=== PATIENT | male | born 1960 | race Caucasian/White ===

== ENCOUNTER 2018-11-12 16:28 | Inpatient (IN) | payer BC ==
[~2018-11-12] VITALS: Ht 188 cm; Wt 109.1 kg
[~2018-11-12 16:28] MED LIST: AMOXICILLIN 8751 TAB PO; CEPHALEXIN500 M1 PO; GLUCOPHAGE500 MG/TAB PO; LEVAQUIN 5500 MG/TA1 PO; LEVEMIR SQ; LEVEMIR100 U/ML SC; NOVOLOG 100U100 U/M1 SC; OXY IR5 MG PO; ROCEPHIN VIA1 G/VIAL IV; ZESTRIL 20MG TA20 MG PO
[2018-11-12 17:29] LABS: ALANINE AMINOTRANSFERASE < 6 U/L (21-72); ALBUMIN 3.5 gm/dL (3.5-5.0); ALKALINE PHOSPHATASE 152 U/L (50-136); ANION GAP 9 mmol/L (7-16); AST,SGOT 16 U/L (15-37); BILIRUBIN,TOTAL 0.6 mg/dL (0.0-1.0); BLOOD UREA NITROGEN 14 mg/dL (9-20); CALCIUM 8.9 mg/dL (8.4-10.2); CARBON DIOXIDE 27 mmol/L (22-30); CHLORIDE 93 mmol/L (98-107); POTASSIUM 4.4 mmol/L (3.4-5.0); SODIUM 129 mmol/L (137-145); TOTAL PROTEIN 7.4 gm/dL (6.4-8.2)
[2018-11-12 17:30] LABS: BASO % 0.3 % (0.0-2.0); EOS # 0.1 (0.0-0.7); EOS % 0.5 % (0-4.0); HEMOGLOBIN 11.2 g/dl (13.5-18.0); LYMPH # 1.2 (1.2-3.4); LYMPH % 8.6 % (20.0-51.0); MEAN CELL VOLUME 87 fl (80.0-100.0); MEAN CORPUSCULAR HEMOGLOBIN 30 pg (27.0-31.0); MEAN CORPUSCULAR HGB CONC 34 g/dl (33.0-37.0); MONO % 6.7 % (1.7-9.3); PLATELET COUNT 280 K/mm3 (130-400); RED BLOOD COUNT 3.79 M/mm3 (4.20-5.60); REDCELL DISTRIBUTION WIDTH-CV 11.9 % (11.5-14.5)
[2018-11-12 17:31] LABS: HEMATOCRIT 33.1 % (42.0-52.0)
[2018-11-12 17:33] LABS: GLUCOSE 526 mg/dL (74-106)
[2018-11-12 17:36] LABS: HEMOGLOBIN A1C 12.8 %
[2018-11-12 17:48] LABS: ARTERIAL BLD GAS O2 SATURATION 93.5 % (92-100); ARTERIAL BLD GAS TCO2 CT 25.5; ARTERIAL BLOOD GAS BASE EXCESS 0.3 (-2-2); ARTERIAL BLOOD GAS HCO3 24.4 meq/L (22-26); ARTERIAL BLOOD GAS PCO2 37.2 mmHg (35-45); ARTERIAL BLOOD GAS pH 7.43 (7.35-7.45)
[2018-11-12 18:08] LABS: LACTIC ACID 1.5 mmol/L (0.4-2.0)
[2018-11-12 18:37] LABS: COLLECTION METHOD CLEAN CATCH
[2018-11-12 18:56] LABS: PH 6 (5-8); SQUAMOUS EPITHELIAL 0-2 /hpf; URINE APPEARANCE Clear; URINE BACTERIA Rare /hpf; URINE BILIRUBIN Negative (NEGATIVE); URINE BLOOD 2+ (NEGATIVE); URINE COLOR Straw; URINE GLUCOSE 3+ (NEGATIVE); URINE KETONE Trace (NEGATIVE); URINE LEUKOCYTE ESTERASE Negative (NEGATIVE); URINE NITRATE Negative (NEGATIVE); URINE PROTEIN(semi-quant) 3+ (NEGATIVE); URINE UROBILINOGEN Negative (NEGATIVE)
[2018-11-12 20:20] VITALS: BP 160/70; PULSE 89; TEMP 101.9
[2018-11-13] VITALS (7 sets, daily range): BP systolic 128–161; BP diastolic 54–80; PULSE 77–88; TEMP 97.8–99.5
--- NOTE | 2018-11-13 01:17 | NUR ---
Patient arrived to the unit at about 1999 with NS and Vanc to left forearm. at bedside. Patient states he stepped on something a few weeks ago, and then he noticed his toe started getting black on Friday. Denies pain when ice is in place. Swelling, warmth, and redness about usp up his foot noted. States he is unable to feel the tops of his feet and toes bilaterally, but can feel a little bit on the soles of his feet. States his diabetes is under control at home and he checks his blood sugar every once in awhile. Blood glucose level at 1999 was 278. Novolog given per orders. Patient states that Novolog and Metformin makes his "blood pressure 100/200". Education attempted, but doesn't appear to be interested. Denies any home medication usage. NS bolus given with fluids that were hanging from the ER. Currently on NS at 125ml/hr per orders. Patient has urinal at bedside. Blood glucose being monitored q4. Left foot noted to have 2nd/3rd toe ulcer/necrosis. Site covered with telfa, gauze, and sera bandage. Some bloody drainage noted. No foul odor. Patient complains of pressure to the bottom of the 2 affected toes and asks to sam it, stating, "If i had a pocket knife, I would do it myself." Patient educated about sterile debridement that will most likely take place tomorrow. has gone home and patient has been resting in bed with eyes closed.
[2018-11-13 06:06] LABS: BASO # 0.1 (0.0-0.2); BASO % 0.4 % (0.0-2.0); EOS # 0.2 (0.0-0.7); EOS % 1.6 % (0-4.0); GRAN # 9.1 (1.4-6.5); GRAN % 75.6 % (42.2-75.2); LYMPH # 1.7 (1.2-3.4); MEAN CELL VOLUME 88 fl (80.0-100.0); MEAN CORPUSCULAR HGB CONC 33 g/dl (33.0-37.0); MEAN PLATELET VOLUME 11.8 fl (7.4-10.4); MONO # 0.9 (0.1-0.6); MONO % 7.7 % (1.7-9.3); PLATELET COUNT 262 K/mm3 (130-400); RED BLOOD COUNT 3.31 M/mm3 (4.20-5.60); REDCELL DISTRIBUTION WIDTH-CV 11.9 % (11.5-14.5)
[2018-11-13 06:07] LABS: HEMOGLOBIN 9.6 g/dl (13.5-18.0); MEAN CORPUSCULAR HEMOGLOBIN 29 pg (27.0-31.0)
--- NOTE | 2018-11-13 06:21 | NUR ---
Patient resting in bed with eyes closed. Fluids running to left forearm. Patient denies pain and any further needs. Will report off to day shift nurse.
[2018-11-13 06:22] LABS: CALCIUM 8.5 mg/dL (8.4-10.2); CREATININE, serum 1.27 (0.66-1.25); POTASSIUM 3.4 mmol/L (3.4-5.0)
--- NOTE | 2018-11-13 07:41 | NUR ---
KAITLIN MANRIQUEZ WITH [facility] CALLED AND IS AWARE OF PICC LINE PLACEMENT.
--- NOTE | 2018-11-13 08:00 | NUR ---
PATIENT RESTING IN BED WITH PRESENT AT THE BEDSIDE. PATIENT IS A&OX4. PATIENT'S LLE WARM AND TENDER TO THE TOUCH. LEFT FOOT, 2ND AND 3RD TOES NECTROTIC-LOOKING OPEN AND DRAINING. FOOT DRESSED WITH GAUZE AND SOFT ROLL. SEE MORNING ASSESSMENT.
--- NOTE | 2018-11-13 09:47 | NUR ---
BERE student attended clinical rounds and followed up with patient to discuss discharge plan. Patient lives with his in [place]. Patient is switching PCPs to Dr. Jansen and he uses the [facility]. Patient does not have any DME and reports independence with ADLs. Patient believes he has a DPOA-HC completed that designates his . SW to continue to follow for any recommendations.
--- NOTE | 2018-11-13 11:15 | NUR ---
PATIENT TAKEN VIA WHEELCHAIR FOR MRI. WILL WAIT FOR ARRIVAL BACK TO ROOM 345.
--- NOTE | 2018-11-13 11:59 | NUR ---
CHEWING TOBACCO WAS FOUND IN PATIENT ROOM. PATIENT EDUCATED ON TOBACCO USE AND BEING IN THE HOSPITAL. PATIENT'S CHEWING TOBACCO DISCARDED.
--- NOTE | 2018-11-13 12:35 | NUR ---
PATIENT ARRIVED BACK TO ROOM 345 VIA WHEELCHAIR FROM MRI.
--- NOTE | 2018-11-13 19:00 | NUR ---
REPORT GIVEN TO KAITLIN NOEL.
--- NOTE | 2018-11-13 21:35 | NUR ---
PT IN BED WITH HOB ELEVATED TO 45 DEGREE ANGLE. PT RUBBING FEET AND TOES. PT HAD DRSG ON AND HE HAD TAKEN IT OFF AND STARTED RUBBING THEM. PT HAS SOME DRAINAGE ON OLD DRSG. PT DENIES PAIN AND ADVISED THAT ICE HELPS HIM THE BEST. PT ADVISES THAT HE DOES NOT WANT ANYMORE ICE TONIGHT. PT HAS NO OTHER NEEDS CALL LIGHT WITHIN REACH.
[2018-11-14] VITALS (15 sets, daily range): BP systolic 138–179; BP diastolic 63–82; PULSE 79–101; TEMP 97–101.8
--- NOTE | 2018-11-14 02:00 | NUR ---
PT IN BED WITH HOB AT 15 DEGREE ANGLE. EARLIER IN SHIFT BEFORE HE WENT TO SLEEP, WRAPPED LEFT FOOT DUE TO DRAINAGE. PT DENIES PAIN AND ADVISES THAT ICE WORKS THE BEST FOR HIM, BUT DID NOT WANT ANY WHILE SLEEPING. PT SOFTLY SNORES AND RESP EVEN AND UNLABORED. CALL LIGHT WITHIN REACH.
--- NOTE | 2018-11-14 05:51 | NUR ---
PT RESTING/SLEEPING IN BED WITH RESP EVEN AND UNLABORED WITH NO S/S OF PAIN OR DISCOMFORT NOTED.
[2018-11-14 08:01] LABS: BASO % 0.3 % (0.0-2.0); EOS # 0.1 (0.0-0.7); EOS % 1.2 % (0-4.0); GRAN # 9.3 (1.4-6.5); GRAN % 79.2 % (42.2-75.2); LYMPH # 1.3 (1.2-3.4); LYMPH % 10.8 % (20.0-51.0); MEAN CELL VOLUME 88 fl (80.0-100.0); MEAN CORPUSCULAR HGB CONC 34 g/dl (33.0-37.0); MEAN PLATELET VOLUME 12.2 fl (7.4-10.4); MONO # 0.9 (0.1-0.6); MONO % 7.9 % (1.7-9.3); PLATELET COUNT 256 K/mm3 (130-400); RED BLOOD COUNT 3.22 M/mm3 (4.20-5.60); REDCELL DISTRIBUTION WIDTH-CV 12.2 % (11.5-14.5)
[2018-11-14 08:07] LABS: HEMATOCRIT 28.3 % (42.0-52.0); HEMOGLOBIN 9.5 g/dl (13.5-18.0); MEAN CORPUSCULAR HEMOGLOBIN 30 pg (27.0-31.0)
[2018-11-14 08:10] LABS: CALCIUM 8.5 mg/dL (8.4-10.2); CREATININE, serum 1.61 (0.66-1.25); POTASSIUM 4.1 mmol/L (3.4-5.0)
[2018-11-14 09:21] LABS: COLLECTION METHOD CLEAN CATCH
[2018-11-14 09:38] LABS: PH 6 (5-8); SQUAMOUS EPITHELIAL None Seen /hpf; URINE APPEARANCE Clear; URINE BACTERIA None Seen /hpf; URINE BILIRUBIN Negative (NEGATIVE); URINE BLOOD 1+ (NEGATIVE); URINE COLOR Straw; URINE GLUCOSE Negative (NEGATIVE); URINE KETONE Trace (NEGATIVE); URINE LEUKOCYTE ESTERASE Negative (NEGATIVE); URINE NITRATE Negative (NEGATIVE); URINE PROTEIN(semi-quant) 1+ (NEGATIVE); URINE RBC 0-2 /hpf; URINE UROBILINOGEN Negative (NEGATIVE)
--- NOTE | 2018-11-14 16:53 | NUR ---
PATIENT TAKEN TO [place]-[facility] VIA BED BY KAITLIN HDZ. WILL WAIT FOR PATIENT ARRIVAL POST-OP BACK TO ROOM 345.
--- NOTE | 2018-11-14 19:00 | NUR ---
END OF SHIFT NOTE. PATIENT IS A&0X4. VSS. POSITIVE PEDAL PULSES EQUAL BILATERLALLY. REDNESS TO LEFT FOOT NOTED. LEFT 2ND AND 3RD TOES NECROTIC, ULCERATED, BILSTERED, OPEN AND DRAINING. SEE MORNING ASSESSMENT. PATIENT GIVEN PAIN MEDICATION ONCE DURING THE DAY FOR PAIN RATED AN 8/10 ON A 0-10 SCALE. PRESENT AT THE BEDSIDE. REPORT GIVEN TO KAITLIN ESCALANTE.
--- NOTE | 2018-11-14 19:05 | NUR ---
ARRIVED VIA BED FROM PACU. ASSESSMENT COMPLETE. Q15MIN VITALS INITIATED. NS@125MLS/HR. LEFT FOOT ELEVATED ON PILLOWS, SOFT BOOT WITH ELIDIA BANDAGE/GAUZE DRESSING C/D/I. RATING PAIN 6/10 TO FOOT. MORPHINE GIVEN PER DR ORDER. ICE WATER PROVIDED WELL SANDWICH BOX. VS 144/63, 83, 96% ON RA, TEMP 98.0. CALL LIGHT WITHIN REACH. BED IN LOW POSITION. WHEELS LOCKED. WILL CONTINUE TO MONITOR
--- NOTE | 2018-11-14 21:00 | NUR ---
RESTING IN BED-FAMILY AT BEDSIDE. NOTED TO HAVE AN INCREASE IN BLOOD PRESSURE UP TO 179/82 DURING POST OP VITALS. RATING PAIN 7/10 TO LEFT FOOT BUT REFUSING PAIN MEDICATIONS. STATES "I DONT LIKE PAIN PILLS I CAN DEAL WITH IT." DISCUSSED ELEVATED BLOOD PRESSURE AND EFFECTS PAIN CAN HAVE ON BLOOD PRESSURE. STILL REFUSES IV OR PO PAIN MEDICATIONS. NOTED TO HAVE ORDERS FOR HYDRALAZINE PRN FOR SYSTOLICS >180. DISCUSSED MEDICATION AND MONITORING BLOOD PRESSURE FOR A FEW MORE CYCLES. VERBALIZES UNDERSTANDING BUT STATES "I WONT TAKE A MEDICATION TO COVER UP THE REAL ISSUE-THE INSULIN IS MAKING ME HAVE HIGH BLOOD PRESSURE, IT DID THIS LAST TIME." AFTER DISCUSSING AT LENGTH WHAT HAPPENED IN A PREVIOUS HOSPITALIZATION-BELIEF IS NOVOLOG INSULIN CAUSED HTN-STATES THIS IS WHY HE IS NOT COMPLIANT WITH DIABETIC MEDICATIONS. STATES HE WILL REFUSE ALL BEDSIDE GLUCOSE CHECKS AND INSULIN NOW. VERY AGITATED AT THIS POINT. WILL CONTINUE TO MONITOR VITAL SIGNS AND FOLLOW DR ORDERS ALLOWED.
--- NOTE | 2018-11-14 22:30 | NUR ---
RESTING IN BED, FOOT ELEVATED ON PILLOWS. STATES PAIN IS STILL 7/10 BUT REFUSING NARCOTICS. OFFERED TYLENOL 650MG-DID AGREE TO TAKE TYLENOL. BLOOD PRESSURE STILL ELEVATED-170/80s-TEMP SLOWLY CLIMBING-CURRENTLY 99.8. IS GIVEN WITH INSTRUCTION ON USE. VERBALIZES UNDERSTANDING AND USED X10 CORRECTLY. NOTED TO HAVE A DRY COUGH. WILL CONTINUE TO MONITOR.
--- NOTE | 2018-11-14 23:00 | NUR ---
BLOOD PRESSURE TRENDING DOWN, TEMP 101.8. HAS STARTED TO CALM DOWN AND LESS ARGUMENTITIVE-DOES STATE HE DOES NOT WANT ANYMORE INSULIN OR GLUCOSE CHECKS. BLANKETS PROVIDED WELL AN EXTRA PILLOW. STATES THE TYLENOL HAS HELPED PAIN RATING 4/10 NOW. WILL MONITOR.
[2018-11-15] VITALS: BP 154/65; PULSE 88; TEMP 99.8
--- NOTE | 2018-11-15 | NUR ---
LAST VITALS-154/65, PULSE 88, TEMP 99.8, RESP 16 97 ON RA. ALLOWED BARREL HEADER TO DUE BEDSIDE GLUCOSE. MUCH MORE COOPERATIVE AT THIS POINT. DENIES NEED FOR PAIN MEDICAITON. ENCOURAGED TO CALL FOR QUESTIONS OR CONCNERNS. VERBALIZES UNDERSTANDING. WILL MONITOR.
[2018-11-15 04:00] VITALS: BP 144/63; PULSE 88; TEMP 97.7
--- NOTE | 2018-11-15 06:03 | NUR ---
RESTED BETTER LAST FEW HOURS OF THIS SHIFT. ALLOWED BEDSIDE GLUCOSES. VS HAVE REMAINED WNL. DENIES NEED FOR PAIN MEDICATION. LEFT FOOT ELEVATED ON PILLOWS. ELIDIA BANDAGE WITH GAUZE DRESSING C/D/I. SOFT BOOT ON. DENIES NEEDS AT THIS TIME. WILL CONTINUE TO MONITOR.
[2018-11-15 06:35] LABS: BASO # 0.1 (0.0-0.2); BASO % 0.5 % (0.0-2.0); EOS # 0.2 (0.0-0.7); EOS % 1.6 % (0-4.0); GRAN # 10.3 (1.4-6.5); GRAN % 80.9 % (42.2-75.2); LYMPH # 1.1 (1.2-3.4); LYMPH % 8.9 % (20.0-51.0); MEAN CELL VOLUME 90 fl (80.0-100.0); MEAN CORPUSCULAR HGB CONC 32 g/dl (33.0-37.0); MEAN PLATELET VOLUME 12.1 fl (7.4-10.4); MONO # 0.9 (0.1-0.6); MONO % 7.3 % (1.7-9.3); PLATELET COUNT 278 K/mm3 (130-400); REDCELL DISTRIBUTION WIDTH-CV 12.4 % (11.5-14.5)
[2018-11-15 06:36] LABS: HEMATOCRIT 27.8 % (42.0-52.0); MEAN CORPUSCULAR HEMOGLOBIN 29 pg (27.0-31.0)
[2018-11-15 06:45] LABS: CALCIUM 8.3 mg/dL (8.4-10.2); CREATININE, serum 1.8 (0.66-1.25); POTASSIUM 3.6 mmol/L (3.4-5.0)
--- NOTE | 2018-11-15 08:00 | NUR ---
PATIENT DROWSY AND RESTING IN BED. VSS. BOWEL SOUNDS ACTIVE ALL FOUR QUADRANTS. POSITIVE PEDAL PULSES EQUAL BILATERALLY. CAP REFILL <3 SECONDS. CMS INTACT. DRESSING TO LEFT FOOT CD&I. BOOT IN PLACE. PICC TO RUE. PATIENT RATES HIS PAIN A 3/10 ON A 0-10 SCALE WITH THE BURNING PAIN LOCATED IN THE AMPUTATED TOES. CALL LIGHT WITHIN REACH. PATIENT DENIES ANY NEEDS AT THIS TIME.
--- NOTE | 2018-11-15 08:00 | NUR ---
PATIENT REFUSED HIS MORNING LEVEMIR.
[2018-11-15 08:40] VITALS: BP 146/66; PULSE 82; TEMP 99.3
--- NOTE | 2018-11-15 11:55 | NUR ---
CRITICAL VANC TROUGH OF 25.19 CALLED TO RAUL KIM. NO ORDERS GIVEN AT THIS TIME.
--- NOTE | 2018-11-15 12:00 | NUR ---
PATIENT REFUSED LUNCH AND HIS AFTERNOON NOVOLOG.
--- NOTE | 2018-11-15 12:45 | NUR ---
PATIENT GIVEN 650MG OF PRN TYLENOL FOR PAIN RATED A 6/10 ON A 0-10 SCALE.
[2018-11-15 12:56] VITALS: BP 144/60; PULSE 90; TEMP 99.2
[2018-11-15 16:00] VITALS: BP 137/71; PULSE 86; TEMP 98.6
--- NOTE | 2018-11-15 16:00 | NUR ---
PATIENT'S BLOOD SUGAR 216. PATIENT REFUSED EVENING INSULIN.
--- NOTE | 2018-11-15 17:30 | NUR ---
PATIENT REFUSING DINNER. PATIENT SNACKING ON FRUIT BROUGHT BY HIS .
[2018-11-15 19:32] VITALS: BP 158/79; PULSE 90; TEMP 98.3
[2018-11-16] VITALS (8 sets, daily range): BP systolic 144–164; BP diastolic 65–80; PULSE 86–96; TEMP 98.3–99.2
--- NOTE | 2018-11-16 06:32 | NUR ---
RESTED OFF AN ON THROUGH THE NIGHT. CONTINUED TO REFUSE INSULIN DOSING BUT DID ALLOW BEDSIDE GLUCOSE. PAIN RATED 5/10 TO LEFT FOOT. REFUSED PAIN MEDICATIONS. ELEVATED ON PILLOWS. HAS REMAINED AFEBRILE THIS SHIFT. DENIES ANY NEEDS AT THIS TIME. WILL MONITOR.
[2018-11-16 06:44] LABS: BASO # 0.1 (0.0-0.2); BASO % 0.5 % (0.0-2.0); EOS # 0.2 (0.0-0.7); EOS % 1.3 % (0-4.0); GRAN # 11.4 (1.4-6.5); GRAN % 82.3 % (42.2-75.2); LYMPH # 1.1 (1.2-3.4); LYMPH % 7.9 % (20.0-51.0); MEAN CELL VOLUME 92 fl (80.0-100.0); MEAN CORPUSCULAR HGB CONC 31 g/dl (33.0-37.0); MEAN PLATELET VOLUME 12.5 fl (7.4-10.4); MONO # 0.9 (0.1-0.6); MONO % 6.6 % (1.7-9.3); PLATELET COUNT 259 K/mm3 (130-400); RED BLOOD COUNT 3.07 M/mm3 (4.20-5.60); REDCELL DISTRIBUTION WIDTH-CV 12.5 % (11.5-14.5)
[2018-11-16 06:45] LABS: HEMATOCRIT 28.3 % (42.0-52.0); HEMOGLOBIN 8.9 g/dl (13.5-18.0); MEAN CORPUSCULAR HEMOGLOBIN 29 pg (27.0-31.0)
[2018-11-16 07:02] LABS: CALCIUM 8.3 mg/dL (8.4-10.2); CREATININE, serum 1.88 (0.66-1.25)
--- NOTE | 2018-11-16 11:37 | NUR ---
SW attended clinical rounds. After a long discussion with patient and , patient agreed to go back on insulin. The discharge plan continues to be for patient to discharge home with his .
--- NOTE | 2018-11-16 20:00 | NUR ---
Pt. sitting up in bed with at bedside. Pt. is A&OX3, assessment complete. PICC to rt. upper arm patent, IV fluids infusing per orders. Pt. reports pain at a 3 on pain scale and denies medication need. Pt. denies other needs, call light within reach.
[2018-11-17 04:13] VITALS: BP 151/73; PULSE 84; TEMP 98.6
[2018-11-17 05:10] LABS: FOLATE (FOLIC ACID) 5.6 ng/mL (7.0-31.4)
--- NOTE | 2018-11-17 05:46 | NUR ---
Pt. slept well through the night. Pt. remains A&OX3. PICC to rt. upper arm remains patent, fluids infusing. Dressing to lt. foot remains CDI. Pt. denies pain or other needs, call light within reach.
[2018-11-17 07:25] LABS: BASO # 0.1 (0.0-0.2); BASO % 0.5 % (0.0-2.0); EOS # 0.3 (0.0-0.7); GRAN # 10.4 (1.4-6.5); GRAN % 78.4 % (42.2-75.2); LYMPH # 1.4 (1.2-3.4); LYMPH % 10.5 % (20.0-51.0); MEAN CELL VOLUME 91 fl (80.0-100.0); MEAN CORPUSCULAR HGB CONC 32 g/dl (33.0-37.0); MEAN PLATELET VOLUME 12.2 fl (7.4-10.4); MONO % 7.5 % (1.7-9.3); PLATELET COUNT 279 K/mm3 (130-400); RED BLOOD COUNT 2.98 M/mm3 (4.20-5.60); REDCELL DISTRIBUTION WIDTH-CV 12.6 % (11.5-14.5)
[2018-11-17 07:30] LABS: HEMATOCRIT 27.1 % (42.0-52.0); HEMOGLOBIN 8.7 g/dl (13.5-18.0); MEAN CORPUSCULAR HEMOGLOBIN 29 pg (27.0-31.0)
[2018-11-17 07:40] LABS: CALCIUM 8.4 mg/dL (8.4-10.2); CREATININE, serum 1.82 (0.66-1.25); POTASSIUM 3.4 mmol/L (3.4-5.0)
[2018-11-17 07:50] LABS: C-REACTIVE PROTEIN 10.5 mg/dL (0.0-0.9)
[2018-11-17] MEDS ORDERED: NORVASC 10MG10 MG PO (07:52)
[2018-11-17] MEDS ORDERED: ROCEPHIN 2GM VIAL21 IV (07:53)
[2018-11-17 08:53] VITALS: BP 169/75; PULSE 92; TEMP 98.7
[2018-11-17] MEDS ORDERED: ZOFRAN ODT4 MG PO (10:06)
[2018-11-17 12:43] VITALS: BP 159/71; PULSE 91; TEMP 98.1
[2018-11-17] MEDS ORDERED: LEVEMIR FLEX100 U/ML SQ (14:35)
[2018-11-17] MEDS ORDERED: TRUE COMFORT P1 EAC1 MC (14:38)
--- NOTE | 2018-11-17 15:26 | NUR ---
Discharge instructions reviewed with patient and spouse, verbalized understanding. Discharged via wheelchair to auto/home with family at 1525.
--- NOTE | 2018-11-17 16:20 | NUR ---
SW met with patient and about outpatient IV antibiotics. Patient and prefer to utilize the express unit. SW contacted the express unit about referral and provided all notes and orders.
[2018-11-18] MEDS ORDERED: NORVASC 10MG10 MG PO (08:15)
[2018-11-18] MEDS ORDERED: ROCEPHIN 2GM VIAL21 IV (08:16)
[2018-11-18] MEDS ORDERED: ZOFRAN 4MG T4 MG/TAB PO (08:19)
== END 2018-11-17 15:25 | disposition home or self-care (01) | DRG 853 ==
LOC: COL.ER 16:28 → SURG 17:47
PROVIDERS: Family Medicine; Nurse Practitioner Family; Orthopaedic Surgery Sports Medicine
PROC: 02HV33Z Insertion of Infusion Device into Superior Vena Cava, Percutaneous Approach (ICD-10-PCS; 2018-11-13)
PROC: 0Y6N0ZC Detachment at Left Foot, Partial 3rd Ray, Open Approach (ICD-10-PCS; 2018-11-14)
PROC: 0Y6N0ZB Detachment at Left Foot, Partial 2nd Ray, Open Approach (ICD-10-PCS; principal; 2018-11-14 18:00)
DX: A41.9 Sepsis, unspecified organism (principal); A48.0 Gas gangrene; M86.8X7 Other osteomyelitis, ankle and foot; L97.526 Non-pressure chronic ulcer of other part of left foot with bone involvement without evidence of necrosis; E11.52 Type 2 diabetes mellitus with diabetic peripheral angiopathy with gangrene; N17.9 Acute kidney failure, unspecified; E11.69 Type 2 diabetes mellitus with other specified complication; E11.65 Type 2 diabetes mellitus with hyperglycemia; E11.621 Type 2 diabetes mellitus with foot ulcer; Z72.0 Tobacco use; Z88.2 Allergy status to sulfonamides; Z88.8 Allergy status to other drugs, medicaments and biological substances; I10 Essential (primary) hypertension; D63.8 Anemia in other chronic diseases classified elsewhere; Z91.14 Patient's other noncompliance with medication regimen; R11.0 Nausea; R05 Cough; E87.70 Fluid overload, unspecified
CPT/HCPCS: 99222-AI; 99232-AI; 99233-AI; 99239; A9585; C1751; J0696; J1815; J2270; J2405; J2543; J2704; J3010; J3370; J7030; J7040

== ENCOUNTER 2018-12-11 08:00 | Outpatient (RCR) | payer BC ==
[2018-11-18 08:00] VITALS: BP 153/69; PULSE 90; TEMP 99.1
--- NOTE | 2018-11-19 08:00 | NUR ---
PICC intact right upper arm. With sterile technique right upper arm PICC dressing change done with insertion site cleansed with ChloraPrep 1,chlorhexidine impregnated disc applied, skin prep, StatLock, and Tegaderm applied. No signs or symptoms of IV complications noted. No concerns voiced. To continue with cares in the express unit.
[2018-11-19 08:07] VITALS: BP 160/72; PULSE 80; TEMP 98
[2018-11-20 08:27] VITALS: BP 148/74; PULSE 80; TEMP 98.4
[2018-11-21 08:00] VITALS: BP 165/86; PULSE 84; TEMP 98.1
[2018-11-22 08:00] VITALS: BP 170/77; PULSE 79; TEMP 98.2
[2018-11-23 08:05] VITALS: BP 157/74; PULSE 81; TEMP 98.6
[2018-11-24 07:59] VITALS: BP 149/64; PULSE 73; TEMP 98
[2018-11-25 07:45] VITALS: BP 138/68; PULSE 78; TEMP 98.3
[2018-11-25 08:09] LABS: HEMATOCRIT 31.8 % (42.0-52.0); HEMOGLOBIN 10.2 g/dl (13.5-18.0); MEAN CELL VOLUME 88 fl (80.0-100.0); MEAN CORPUSCULAR HEMOGLOBIN 28 pg (27.0-31.0); MEAN CORPUSCULAR HGB CONC 32 g/dl (33.0-37.0); MEAN PLATELET VOLUME 10.5 fl (7.4-10.4); PLATELET COUNT 309 K/mm3 (130-400); RED BLOOD COUNT 3.61 M/mm3 (4.20-5.60); REDCELL DISTRIBUTION WIDTH-CV 12.6 % (11.5-14.5)
[2018-11-25 08:26] LABS: ALBUMIN 3.2 gm/dL (3.5-5.0); BILIRUBIN,TOTAL 0.3 mg/dL (0.0-1.0); C-REACTIVE PROTEIN 0.7 mg/dL (0.0-0.9); CALCIUM 8.8 mg/dL (8.4-10.2); CREATININE, serum 1.44 (0.66-1.25); POTASSIUM 3.4 mmol/L (3.4-5.0); TOTAL PROTEIN 7.1 gm/dL (6.4-8.2)
[2018-11-25 08:28] LABS: ERYTHROCYTE SEDIMENTATION RATE 91 mm/hr (0-30)
--- NOTE | 2018-11-26 08:00 | NUR ---
PICC intact right upper arm with sterile dressing change done with insertion site cleansed with chloraprep x 1, chlorhexidine impregnated disk applied, skin prep, stat lock, and tegaderm applied. no signs or sypmptoms of IV complications noted. no concerns voiced.
[2018-11-26 08:03] VITALS: BP 154/78; PULSE 81; TEMP 98.2
[2018-11-27 09:22] VITALS: BP 148/71; PULSE 83; TEMP 97.9
[2018-11-28 08:14] VITALS: BP 149/72; PULSE 79; TEMP 98
[2018-11-29 08:07] VITALS: BP 148/73; PULSE 84; TEMP 98.2
[2018-11-30 07:59] VITALS: BP 157/68; PULSE 68; TEMP 98.7
[2018-12-01 08:32] VITALS: BP 157/68; PULSE 78; TEMP 98.6
[2018-12-01 08:38] LABS: HEMOGLOBIN 10.9 g/dl (13.5-18.0); MEAN CELL VOLUME 87 fl (80.0-100.0); MEAN CORPUSCULAR HEMOGLOBIN 28 pg (27.0-31.0); MEAN CORPUSCULAR HGB CONC 33 g/dl (33.0-37.0); MEAN PLATELET VOLUME 11.2 fl (7.4-10.4); PLATELET COUNT 224 K/mm3 (130-400); RED BLOOD COUNT 3.86 M/mm3 (4.20-5.60); REDCELL DISTRIBUTION WIDTH-CV 12.9 % (11.5-14.5)
[2018-12-01 08:47] LABS: HEMATOCRIT 33.4 % (42.0-52.0)
[2018-12-01 08:55] LABS: ALBUMIN 3.6 gm/dL (3.5-5.0); BILIRUBIN,TOTAL 0.5 mg/dL (0.0-1.0); CALCIUM 9.1 mg/dL (8.4-10.2); CREATININE, serum 1.32 (0.66-1.25); POTASSIUM 3.4 mmol/L (3.4-5.0); TOTAL PROTEIN 7.3 gm/dL (6.4-8.2)
[2018-12-01 09:00] LABS: C-REACTIVE PROTEIN 0.5 mg/dL (0.0-0.9)
[2018-12-01 09:06] LABS: ERYTHROCYTE SEDIMENTATION RATE 58 mm/hr (0-30)
--- NOTE | 2018-12-02 08:00 | NUR ---
PICC dressing not intact. with sterile technique right upper arm PICC dressing changed with insertion sites cleansed with ChloraPrep 1, chlorhexidine impregnated disc applied, skin prep, StatLock, and Tegaderm applied. No signs or symptoms of IV complications noted. No concerns voiced.
[2018-12-02 08:11] VITALS: BP 142/67; PULSE 76; TEMP 97.9
[2018-12-03 08:43] VITALS: BP 143/69; PULSE 75; TEMP 98.8
[2018-12-04 08:04] VITALS: BP 150/71; PULSE 72; TEMP 98.1
[2018-12-05 08:00] VITALS: BP 155/64; PULSE 76; TEMP 98.3
[2018-12-06 08:20] VITALS: BP 157/72; PULSE 81; TEMP 98.2
[2018-12-07 08:37] VITALS: BP 142/69; PULSE 82; TEMP 98.5
[2018-12-08 08:28] VITALS: BP 126/71; PULSE 82; TEMP 98.3
[2018-12-08 08:36] LABS: HEMATOCRIT 35.2 % (42.0-52.0); HEMOGLOBIN 11.5 g/dl (13.5-18.0); MEAN CELL VOLUME 87 fl (80.0-100.0); MEAN CORPUSCULAR HEMOGLOBIN 28 pg (27.0-31.0); MEAN CORPUSCULAR HGB CONC 33 g/dl (33.0-37.0); MEAN PLATELET VOLUME 11.3 fl (7.4-10.4); PLATELET COUNT 191 K/mm3 (130-400); RED BLOOD COUNT 4.06 M/mm3 (4.20-5.60); REDCELL DISTRIBUTION WIDTH-CV 13.1 % (11.5-14.5)
[2018-12-08 08:48] LABS: ALBUMIN 3.8 gm/dL (3.5-5.0); BILIRUBIN,TOTAL 0.6 mg/dL (0.0-1.0); C-REACTIVE PROTEIN 0.6 mg/dL (0.0-0.9); CALCIUM 8.9 mg/dL (8.4-10.2); CREATININE, serum 1.18 (0.66-1.25); POTASSIUM 3.4 mmol/L (3.4-5.0); TOTAL PROTEIN 7.4 gm/dL (6.4-8.2)
[2018-12-08 09:34] LABS: ERYTHROCYTE SEDIMENTATION RATE 65 mm/hr (0-30)
[2018-12-09 07:58] VITALS: BP 132/62; PULSE 83; TEMP 98.8
[2018-12-10 08:00] VITALS: BP 141/71; PULSE 79; TEMP 98
--- NOTE | 2018-12-10 08:20 | NUR ---
PICC intact right upper arm with sterile dressing change done with insertion site cleansed with chloraprep x 1, chlorhexidine impregnated disk applied, skin prep, stat lock, and tegaderm applied. no signs or symptoms of IV complications noted. no concerns voiced. to continue with cares in [place].
[~2018-12-11] VITALS: Ht 188 cm; Wt 106.5 kg
[~2018-12-11 08:00] MED LIST changes: +BLOOD PRESSURE PO; +LEVEMIR FLEX100 U/ML SQ; +NORVASC 10MG10 MG PO; +PRINIVIL10 MG PO; +ROCEPHIN 2GM VIAL21 IV; +TRUE COMFORT P1 EAC1 MC; +ZOFRAN 4MG T4 MG/TAB PO; +ZOFRAN ODT4 MG PO
[2018-12-11 08:13] VITALS: BP 148/77; PULSE 80; TEMP 98.6
--- NOTE | 2018-12-11 10:30 | NUR ---
PICC removal complete by MARTIN Schroeder RN. After ten minutes no bleeding noted. Teaching had been done by IVS as well as Post PICC discontinuation paperwork.
== END 2018-12-11 10:45 | disposition home or self-care (01) ==
LOC: EUO 08:00
PROVIDERS: Internal Medicine; Nurse Practitioner; Obstetrics & Gynecology
DX: Z79.899 Other long term (current) drug therapy (principal)
CPT/HCPCS: J0696

== ENCOUNTER → 2019-11-24 | Outpatient (CLI) | payer BC | LOC: ZCOL.LAB 14:19 | DX: S91.309A Unspecified open wound, unspecified foot, initial encounter (principal); E11.69 Type 2 diabetes mellitus with other specified complication; E11.621 Type 2 diabetes mellitus with foot ulcer; E11.39 Type 2 diabetes mellitus with other diabetic ophthalmic complication; M86.9 Osteomyelitis, unspecified ==

== ENCOUNTER 2019-12-14 14:24 | Inpatient (IN) | payer BC ==
[~2019-12-14] VITALS: Ht 185.4 cm; Wt 100.6 kg
[2019-12-14 16:08] LABS: BASO # 0.1 (0.0-0.2); BASO % 0.6 % (0.0-2.0); EOS # 0.2 (0.0-0.7); EOS % 2.1 % (0-4.0); GRAN # 8.7 (1.4-6.5); GRAN % 77.8 % (42.2-75.2); LYMPH # 1.5 (1.2-3.4); LYMPH % 13.6 % (20.0-51.0); MEAN CELL VOLUME 89 fl (80.0-100.0); MEAN CORPUSCULAR HEMOGLOBIN 29 pg (27.0-31.0); MEAN CORPUSCULAR HGB CONC 32 g/dl (33.0-37.0); MEAN PLATELET VOLUME 11.4 fl (7.4-10.4); MONO # 0.6 (0.1-0.6); MONO % 5.3 % (1.7-9.3); PLATELET COUNT 303 K/mm3 (130-400); RED BLOOD COUNT 3.82 M/mm3 (4.20-5.60); REDCELL DISTRIBUTION WIDTH-CV 12.8 % (11.5-14.5)
[2019-12-14 16:13] LABS: HEMATOCRIT 34.1 % (42.0-52.0)
[2019-12-14] MEDS ORDERED: LANTUS SOLOS100 U/ML SQ (16:41)
[2019-12-14 16:43] LABS: ALBUMIN 3.9 gm/dL (3.5-5.0); BILIRUBIN,TOTAL 0.4 mg/dL (0.0-1.0); C-REACTIVE PROTEIN 0.8 mg/dL (0.0-0.9); CALCIUM 9.5 mg/dL (8.4-10.2); CREATININE, serum 1.06 (0.66-1.25); POTASSIUM 4.7 mmol/L (3.4-5.0)
--- NOTE | 2019-12-14 18:19 | NUR ---
Vancomycin Initial Dosing Pharmacy Note Ordering provider: Lorenzo Vásquez MD Indication/duration: osteomyelitis Relevant comorbidities: DM, ulcer LABS: eCrCl ~ 90 mL/min Recommendation: Loading dose: 1.75 grams given in ED 12/14/19 @ 16:30 Maintenance dose: 750 mg Q8H starting 12/15/19 @ 01:00 Trough goal: 15-20 ug/mL with first trough ordered for 12/16/19 @ 08:30. Will continue to follow.
[2019-12-14 21:53] VITALS: BP 187/87; PULSE 88; TEMP 98.4
[2019-12-14] MEDS ORDERED: TYLENOL 500MG500 MG PO (22:05)
[2019-12-15 00:34] VITALS: BP 163/81; PULSE 81; TEMP 98.2
[2019-12-15 04:46] VITALS: BP 162/86; PULSE 79; TEMP 98.2
[2019-12-15 07:37] VITALS: BP 148/65; PULSE 85; TEMP 98.1
--- NOTE | 2019-12-15 08:03 | NUR ---
Assessment completed, alert/oriented, vital signs stable, reports pain is tolerable, has been by to eval left foot/toe and discuss plan of care/ plans for MRI today and surgery tommorow 12/15, stated we did not need to get a wound culture/ and he placed dressing to foot, blood sugars controlled, heart RRR, lungs CTA, patient denies other needs this morning, IV abx infusing
[2019-12-15 09:01] LABS: BASO # 0.1 (0.0-0.2); EOS # 0.3 (0.0-0.7); EOS % 3.5 % (0-4.0); GRAN # 6.6 (1.4-6.5); HEMOGLOBIN 10.7 g/dl (13.5-18.0); LYMPH # 1.8 (1.2-3.4); LYMPH % 19.3 % (20.0-51.0); MEAN CELL VOLUME 90 fl (80.0-100.0); MEAN CORPUSCULAR HEMOGLOBIN 29 pg (27.0-31.0); MEAN CORPUSCULAR HGB CONC 32 g/dl (33.0-37.0); MEAN PLATELET VOLUME 11.3 fl (7.4-10.4); MONO # 0.5 (0.1-0.6); MONO % 5.5 % (1.7-9.3); PLATELET COUNT 286 K/mm3 (130-400); RED BLOOD COUNT 3.76 M/mm3 (4.20-5.60); REDCELL DISTRIBUTION WIDTH-CV 12.9 % (11.5-14.5)
[2019-12-15 09:04] LABS: HEMATOCRIT 33.8 % (42.0-52.0)
--- NOTE | 2019-12-15 09:12 | NUR ---
Patient called wet cotton feeder light for his IV abx being finished, upong arriving to his room to flush and INT his IV line he also tell med that he just took home Metormin, I explained to him that we want his Metformin held and why, instructed him that we are managing his medicaitons and that he is not to take any home medicaitons unless approved by hospitalist, patient verbalized understanding, I have notified the hospitalist of the incident
[2019-12-15 09:13] LABS: CALCIUM 9.5 mg/dL (8.4-10.2); CREATININE, serum 1.14 (0.66-1.25); POTASSIUM 4.3 mmol/L (3.4-5.0)
--- NOTE | 2019-12-15 10:19 | NUR ---
Patient is down in radiology for MRI
[2019-12-15 11:23] VITALS: BP 151/73; PULSE 85; TEMP 98.7
--- NOTE | 2019-12-15 11:52 | NUR ---
BERE met with the patient to discuss discharge plan. The patient lives with his , Tish (ph#[phone]), and their daughter. He reports independence with ADLs and has a cane, walker, and crutches. The patient's PCP is Dr. Mariya Reyes and he receives his medications at [facility]. He reports no difficulties obtaining his meds. The patient states that he has not worked since August and would be interested in financial assistance through the hospital. BERE to provide the patient with a Financial Assistance Application. The patient plans to return home with his family upon discharge. No additional needs at this time.
--- NOTE | 2019-12-15 11:57 | NUR ---
First visit from the retail security professional. No needs right now.
[2019-12-15 16:05] VITALS: BP 126/68; PULSE 88; TEMP 98.8
--- NOTE | 2019-12-15 19:54 | NUR ---
Received report from KAITLIN Carr. Alert and oriented. c/o pain to left great toe, rate 3-4/10, manageable at this time. INT to RAC intact, flushed, dressing CDI. Pt understand POC and NPO status midnight in preparation of procedure in AM. Needs met at this time. Call light within reach. Pt ambulated around medical floor at this time.
[2019-12-15 20:25] VITALS: BP 137/66; PULSE 81; TEMP 98.9
[2019-12-16] VITALS (8 sets, daily range): BP systolic 113–159; BP diastolic 43–80; PULSE 81–96; TEMP 97.4–98.4
--- NOTE | 2019-12-16 06:00 | NUR ---
Pt made no complaints during this shift. Meds adminsitered as ordered. Call light within reach.
--- NOTE | 2019-12-16 06:58 | NUR ---
Report given to KAITLIN Carr.
[2019-12-16 08:59] LABS: BASO # 0.1 (0.0-0.2); EOS # 0.3 (0.0-0.7); EOS % 2.9 % (0-4.0); GRAN # 6.5 (1.4-6.5); GRAN % 69.1 % (42.2-75.2); HEMATOCRIT 34.8 % (42.0-52.0); HEMOGLOBIN 11.2 g/dl (13.5-18.0); LYMPH # 1.9 (1.2-3.4); LYMPH % 20.1 % (20.0-51.0); MEAN CELL VOLUME 90 fl (80.0-100.0); MEAN CORPUSCULAR HEMOGLOBIN 29 pg (27.0-31.0); MEAN CORPUSCULAR HGB CONC 32 g/dl (33.0-37.0); MONO # 0.6 (0.1-0.6); MONO % 5.9 % (1.7-9.3); PLATELET COUNT 288 K/mm3 (130-400); RED BLOOD COUNT 3.87 M/mm3 (4.20-5.60)
[2019-12-16 09:08] LABS: CALCIUM 9.7 mg/dL (8.4-10.2); CREATININE, serum 1.32 (0.66-1.25); POTASSIUM 4.8 mmol/L (3.4-5.0)
--- NOTE | 2019-12-16 09:40 | NUR ---
Vancomycin Follow-up Pharmacy Note Current regimen: Vancomycin 750 mg IV q8h Vancomycin trough: 28.35 Adjustments: Will hold Vancomcyin to allow trough level to clear, then restart with Vancomycin 750 mg IV q12h. Pharmacy will continue to monitor and check a Vancomycin trough on 12/18/19.
--- NOTE | 2019-12-16 10:29 | NUR ---
Assessment completed, alert/oriented, vital signs stable, reports pain is minimal, NPO, scheduled for surgery to amputate left great toe, consent signed, present, Vanc trough elevated/ pharmacy notified to adjust, heart RRR, lungS CTA, denies other needs
--- NOTE | 2019-12-16 13:25 | NUR ---
Patient arrived back from the PACU at this time, alert/oriented, vital sign stable, advnaced diet, present in the room will continue to monitor
--- NOTE | 2019-12-16 14:28 | NUR ---
Patient is doing well post-op, denies pain, vital signs stable
--- NOTE | 2019-12-16 20:59 | NUR ---
Received report from KAITLIN Carr. Pt laying in bed comfortably with left leg elevated on pillow. c/o pain to left great toe/foot , rate 6-7/10, prn tylenol administered as requested by pt. Scheduled meds administered as ordered. INT to RAC intact, flushed, dressing CDI. Left foot with bandage in place. Needs met at this time. Call light within reach.
[2019-12-17 00:08] VITALS: BP 127/62; PULSE 76; TEMP 98.5
[2019-12-17 04:17] VITALS: BP 143/68; PULSE 85; TEMP 98.3
--- NOTE | 2019-12-17 05:32 | NUR ---
Pt made no complaints during the night. PRN tylenol adminsitered x2 for pain to left great toe/foot with some relief. Pt refused other pain meds. Ice provided to place on foot/toe. Scheduled meds adminsitered. Call light within reach.
--- NOTE | 2019-12-17 06:58 | NUR ---
Report given to KAITLIN Yee.
[2019-12-17 07:12] LABS: BASO # 0.1 (0.0-0.2); BASO % 0.6 % (0.0-2.0); EOS # 0.3 (0.0-0.7); EOS % 2.6 % (0-4.0); GRAN # 7.8 (1.4-6.5); GRAN % 73.8 % (42.2-75.2); HEMOGLOBIN 10.4 g/dl (13.5-18.0); LYMPH # 1.7 (1.2-3.4); LYMPH % 16.4 % (20.0-51.0); MEAN CELL VOLUME 90 fl (80.0-100.0); MEAN CORPUSCULAR HEMOGLOBIN 30 pg (27.0-31.0); MEAN CORPUSCULAR HGB CONC 33 g/dl (33.0-37.0); MEAN PLATELET VOLUME 11.2 fl (7.4-10.4); MONO # 0.6 (0.1-0.6); PLATELET COUNT 265 K/mm3 (130-400); RED BLOOD COUNT 3.49 M/mm3 (4.20-5.60)
[2019-12-17 07:13] LABS: HEMATOCRIT 31.3 % (42.0-52.0)
[2019-12-17 07:31] LABS: CALCIUM 9.2 mg/dL (8.4-10.2); CREATININE, serum 1.28 (0.66-1.25); POTASSIUM 4.3 mmol/L (3.4-5.0)
[2019-12-17 07:35] VITALS: BP 134/60; PULSE 84; TEMP 98
[2019-12-17] MEDS ORDERED: DOXYCYCLINE HY100 MG PO (09:20)
[2019-12-17] MEDS ORDERED: TYLENOL 325MG325 MG PO (09:22)
--- NOTE | 2019-12-17 11:28 | NUR ---
Patient is alert and oriented. 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 Patient complain of pain at 3/10. decline pain medication. patient IV was discontinued after 750Mg vanco was infused. Patient discharge with Doxycycline 100mg PO BID and Tylenol for pain. Appointment with orthopedic and PCP was scheduled. patient discharged. is driving him home.
== END 2019-12-17 11:30 | disposition home or self-care (01) | DRG 617 ==
LOC: COL.ER 14:24 → MEDICAL 15:46
PROVIDERS: Family Medicine; Nurse Practitioner Family; Orthopaedic Surgery; ADMIT Hospitalist
PROC: 0Y6Q0Z1 Detachment at Left 1st Toe, High, Open Approach (ICD-10-PCS; principal; 2019-12-16 10:30)
DX: E11.69 Type 2 diabetes mellitus with other specified complication (principal); M86.9 Osteomyelitis, unspecified; E11.621 Type 2 diabetes mellitus with foot ulcer; E11.65 Type 2 diabetes mellitus with hyperglycemia; E11.22 Type 2 diabetes mellitus with diabetic chronic kidney disease; E11.40 Type 2 diabetes mellitus with diabetic neuropathy, unspecified; I12.9 Hypertensive chronic kidney disease with stage 1 through stage 4 chronic kidney disease, or unspecified chronic kidney disease; N18.3 Chronic kidney disease, stage 3 (moderate); N17.9 Acute kidney failure, unspecified; L97.529 Non-pressure chronic ulcer of other part of left foot with unspecified severity; F17.290 Nicotine dependence, other tobacco product, uncomplicated; Z79.4 Long term (current) use of insulin; Z89.422 Acquired absence of other left toe(s); Z88.2 Allergy status to sulfonamides; Z88.8 Allergy status to other drugs, medicaments and biological substances
CPT/HCPCS: 99222-AI; 99233-AI; 99239; J1650; J1815; J2250; J2405; J2543; J2704; J3010; J3370; J7040; J7050

== ENCOUNTER → 2020-06-12 | Outpatient (CLI) | payer BC ==
[~2020-06-12] MED LIST changes: +DOXYCYCLINE HY100 MG PO; +LANTUS SOLOS100 U/ML SQ; +TYLENOL 325MG325 MG PO; +TYLENOL 500MG500 MG PO
== END ==
LOC: COL.RAD 15:11
DX: R10.32 Left lower quadrant pain (principal)

== ENCOUNTER 2020-08-03 10:15 | Day surgery (SDC) | payer BC ==
[~2020-08-03] VITALS: Ht 185.4 cm; Wt 110.9 kg
[2020-08-03 12:35] VITALS: BP 168/77; PULSE 88; TEMP 97.3
[2020-08-03] MEDS ORDERED: LANTUS SOLOS100 U/ML SQ (12:57)
[2020-08-03] MEDS ORDERED: PRINIVIL20 MG PO (12:58)
[2020-08-03] MEDS ORDERED: MOTRIN 600600 MG/TAB PO (14:58)
[2020-08-03] MEDS ORDERED: ULTRAM 50MG TAB50 MG PO (14:59)
[2020-08-03 15:25] VITALS: BP 160/69; PULSE 83
--- NOTE | 2020-08-03 15:25 | NUR ---
Patient returns to room 6 per cart from PACU accompanied by Clementina MADRIGAL and is awake and alert. Temp 97.9 and room air sats 94%. Incisions x3 covered with exofin surgical glue. Wound edges well approximated. Has gown off and laying over groin area. Will not keep covers on. States that he is hot. Rubbing abdominal area and states that he feels like there is a bubble.
--- NOTE | 2020-08-03 15:30 | NUR ---
Sitting up on the edge of the cart and took off blood pressure cuff and O2 sat monitor. Patient got clothing out of the closet and began dressing self.
[2020-08-03 15:35] VITALS: BP 160/69; PULSE 83; TEMP 97.9
--- NOTE | 2020-08-03 15:35 | NUR ---
Drinking iced tea and complains of pain. Refuses narcotic. States will only take Tylenol. Agreed to take Motrin 600mg and given. Demands that the IV be taken out and done so. Assisted up and is walking in the hallway.
--- NOTE | 2020-08-03 16:00 | NUR ---
Has continued to walk in the hallway and will not lay on cart. States that he is ready to go home. Spouse notified and is waiting in the parking lot. Dismissal instructions given and voices understanding of these. Informed that scripts for Motrin and Ultram sent to pharmacy.
--- NOTE | 2020-08-03 16:03 | NUR ---
Patient dismissed to home driven by spouse and escorted to the front door by this RN. Refused to set in wheelchair. Tolerated activity well.
== END 2020-08-03 16:03 | disposition home or self-care (01) ==
LOC: SDCO 10:15
DX: K40.90 Unilateral inguinal hernia, without obstruction or gangrene, not specified as recurrent (principal); K41.90 Unilateral femoral hernia, without obstruction or gangrene, not specified as recurrent; E11.22 Type 2 diabetes mellitus with diabetic chronic kidney disease; I12.9 Hypertensive chronic kidney disease with stage 1 through stage 4 chronic kidney disease, or unspecified chronic kidney disease; N18.30 Chronic kidney disease, stage 3 unspecified; F17.220 Nicotine dependence, chewing tobacco, uncomplicated; Z79.4 Long term (current) use of insulin; Z88.2 Allergy status to sulfonamides; Z88.8 Allergy status to other drugs, medicaments and biological substances; Z20.822 Contact with and (suspected) exposure to COVID-19; Z79.899 Other long term (current) drug therapy; Z89.422 Acquired absence of other left toe(s)
CPT/HCPCS: C1781; J2405; J2704; J3010